=== PATIENT | female | born 1960 | race Caucasian/White ===

== ENCOUNTER 2018-11-06 08:37 | Inpatient (IN) ==
[2018-11-06] MEDS ORDERED: Sod Chloride 0.9% Inj 1,000 ML IV.SIG ONE (09:08)
[2018-11-06] MEDS ORDERED: Acetaminophen 325 MG Tablet PO ONE (09:08)
--- NOTE | 2018-11-06 09:17 | ED ---
HPI General Chief complaint: Respiratory Symptoms Stated complaint: sob/nauseous x thur Time Seen by Provider: 11/06/18 08:49 Source: patient Mode of arrival: ambulatory Limitations: no limitations History of Present Illness HPI Narrative: The patient is a 58-year-old female who presents to the emergency department for generalized weakness. The patient states that approximately a week and a half ago she developed symptoms including generalized weakness, nausea, vomiting, diarrhea, and cough. The patient states she has been in bed for the last week, is unable to get out of bed secondary to her generalized weakness. The patient last had nausea and vomiting 2 nights ago, she tried to eat mashed potatoes with gravy last night, however, complained of a poor appetite. She also complains of a dry nonproductive cough with mild shortness of breath. The patient does endorse subjective fevers at home but does not have a thermometer. The patient denies any chest pain, abdominal pain, dysuria, frequency, or urgency. The patient does have a roommate with similar symptoms. The patient does have a history of tobacco use, but states she has been too weak to smoke for the last week and a half. She does not have a primary physician. She denies taking any medications on a daily basis. MD Complaint: Reports generalized weakness Onset (ago): week(s) Duration: constant and progressively worsening Location: Reports generalized Migration: Reports none Severity: moderate Relieving factors: none Exacerbating factors: none Context: Reports recent illness Associated symptoms: Reports fever/chills, loss of appetite, nausea/vomiting and shortness of breath Related Data Home Medications Medication Instructions Recorded Confirmed No Known Home Medications 11/06/18 11/06/18 Allergies Allergy/AdvReac Type Severity Reaction Status Date / Time diclofenac Allergy Severe Anaphylaxis Verified 11/06/18 09:11 etodolac Allergy Severe Anaphylaxis Verified 11/06/18 09:11 flurbiprofen Allergy Severe Anaphylaxis Verified 11/06/18 09:11 ibuprofen Allergy Severe Anaphylaxis Verified 11/06/18 09:11 indomethacin Allergy Severe Anaphylaxis Verified 11/06/18 09:11 ketoprofen Allergy Severe Anaphylaxis Verified 11/06/18 09:11 ketorolac Allergy Severe Anaphylaxis Verified 11/06/18 09:11 naproxen Allergy Severe Anaphylaxis Verified 11/06/18 09:11 oxaprozin Allergy Severe Anaphylaxis Verified 12/26/18 09:11 Review of Systems ROS: all other systems reviewed are negative [facility] Medical History Medical History Patient denies medical problems (Acute) Surgical History Surgical History No history of previous surgery (Acute) Social History Social History Substance History: No History of Abuse Smoking Status: Current every day smoker Tobacco Type: Cigarettes How Often Do You Have a Drink Containing Alcohol: Never Recent Travel in [facility] within the Last 8 Weeks: No Recent Out of Country Travel within the Last 8 Weeks: No Exam Narrative Exam Narrative: GENERAL: Awake, alert, pleasant 58-year-old female who appears her stated age and is in no acute respiratory distress. SKIN: Focused skin assessment warm/dry. HEAD: Atraumatic. Normocephalic. EYES: Pupils equal and round. No scleral icterus. No injection or drainage. ENT: No nasal bleeding or discharge. Dry mucous membranes. Upper dentures in place. No lower teeth. NECK: Trachea midline. No JVD. CARDIOVASCULAR: Regular, tachycardic with a heart rate of 115. RESPIRATORY: No accessory muscle use. Clear to auscultation. Breath sounds equal bilaterally. GASTROINTESTINAL: Abdomen soft, non-tender, nondistended. No guarding or rigidity. Back: No CVA tenderness. MUSCULOSKELETAL: No obvious deformities. No clubbing. No cyanosis. No edema. NEUROLOGICAL: Awake and alert. No obvious cranial nerve deficits. Motor grossly within normal limits. Normal speech. PSYCHIATRIC: Appropriate mood and affect; insight and judgment normal. Course Initial Documented Vital Signs Temperature 97.8 F 11/06/18 09:00 Pulse Rate 115 H 11/06/18 09:00 Respiratory Rate 22 11/06/18 09:00 Blood Pressure 116/82 11/06/18 09:00 Pulse Oximetry 96 11/06/18 09:00 Last Documented Vital Signs Temperature 97.8 F 11/06/18 09:00 Pulse Rate 97 H 11/06/18 10:30 Respiratory Rate 22 11/06/18 10:30 Blood Pressure 132/85 11/06/18 10:30 Pulse Oximetry 96 11/06/18 10:30 Medical Decision Making MDM Narrative Medical decision making narrative: IV was established, labs are drawn and sent, and the patient was placed on cardiac telemetry monitoring and continuous pulse oximetry monitoring. EKG was ordered and interpreted. Chest x-ray was obtained. The patient was administered 1 L of IV fluids and Zofran 4 mg intravenously. Influenza screen and UA were sent to lab. The patient's white count was normal, hemoglobin was slightly elevated, most likely secondary to hemoconcentration. BUN was greater than 80, creatinine is greater than 2, patient has 40-1 ratio, most likely secondary to prerenal azotemia and dehydration. Chest x-ray reveals bilateral lower lobe infiltrates. UA reveals UTI. The patient was covered with Rocephin and Zithromax. The patient does have diarrhea with pneumonia, therefore, Legionella urinary antigen was sent to lab. The patient will be admitted for pneumonia, UTI, acute kidney injury, and dehydration. The patient does not have a primary physician, therefore, the on- call medical service was paged for admission. I discussed the patient with Dr. Sarmiento who agrees with admission. Influenza screen was also sent to lab. Medical Screen Exam Complete: Yes Emergency Medical Condition: Yes Differential Diagnosis Differential Diagnosis: Differential diagnosis includes hyponatremia, dehydration, acute kidney injury, UTI, pneumonia, viral syndrome, gastroenteritis, debility, deconditioning. Lab Data Lab results reviewed: Yes I reviewed the patient's lab results. Result diagrams: 11/06/18 09:35 11/06/18 09:35 Lab Results 11/06/18 11/06/18 11/06/18 Range/Units 09:35 09:35 09:45 CBC w Diff Slide review pending WBC 8.9 (4.0-11.0) th/mm3 RBC 5.39 H (4.00-5.30) mil/mm3 Hgb 15.9 H (11.6-15.3) gm/dL Hct 48.0 H (35.0-46.0) % MCV 89.1 (80.0-100.0) fL MCH 29.5 (27.0-34.0) pg MCHC 33.1 (32.0-36.0) % RDW 12.5 (11.6-17.2) % Plt Count 91 L (150-450) th/mm3 MPV 10.1 (7.0-11.0) fL Neut % (Auto) 90.6 H (16.0-70.0) % Lymph % (Auto) 3.1 L (9.0-44.0) % Wilkinson % (Auto) 6.1 (0.0-8.0) % Eos % (Auto) 0.0 (0.0-4.0) % Baso % (Auto) 0.2 (0.0-2.0) % Neut # (Auto) 8.1 H (1.8-7.7) th/mm3 Lymph # (Auto) 0.3 L (1.0-4.8) th/mm3 Wilkinson # (Auto) 0.5 (0.0-0.9) th/mm3 Eos # (Auto) 0.0 (0.0-0.4) th/mm3 Baso # (Auto) 0.0 (0.0-0.2) th/mm3 WBC Differential . Diff Scan Auto diff confirmed Differential Comment . Platelet Estimate Low L (Normal) Platelet Morphology Enlarged H (Normal) Sodium 125 L (136-145) meq/L Potassium 3.9 (3.5-5.1) meq/L Chloride 89 L (98-107) meq/L Carbon Dioxide 23.3 (21.0-32.0) meq/L Anion Gap 13 (5-15) meq/L BUN 81 H (7-18) mg/dL Creatinine 2.20 H (0.50-1.00) mg/dL Estimated GFR 23 L (>89) mL/min Random Glucose 275 H (74-106) mg/dL Calcium 7.5 L (8.5-10.1) mg/dL Magnesium 2.9 H (1.5-2.5) mg/dL Total Bilirubin 0.5 (0.2-1.0) mg/dL AST 151 H (15-37) U/L ALT 47 (10-53) U/L Alkaline Phosphatase 114 (45-117) U/L Total Creatine Kinase 257 H (26-192) U/L CK-MB (CK-2) 1.7 (0.5-3.6) ng/mL CK-MB (CK-2) % 0.7 (0.0-4.0) % Troponin I 0.03 (0.02-0.05) ng/mL Total Protein 7.0 (6.4-8.2) g/dL Albumin 2.7 L (3.4-5.0) g/dL TSH 0.726 (0.358-3.740) uIU/mL Urine Color Yellow (Yellw/Straw) Urine Clarity Cloudy H (Clear) Urine pH 5.5 (5.0-8.5) Ur Specific Gleason 1.025 (1.002-1.035) Urine Protein 100 H (Neg-Trace) mg/dL Urine Glucose (UA) 100 H (Negative) mg/dL Urine Ketones Negative (Negative) mg/dL Urine Occult Blood Moderate H (Negative) Urine Nitrate Negative (Negative) Urine Bilirubin Negative (Negative) Urine Urobilinogen 1.0 (Less than 2) mg/dL Ur Leukocyte Esterase Moderate H (Negative) Urine RBC 0-3 (0-3) /hpf Urine WBC 21-50 H (0-5) /hpf Urine WBC Clumps Occasional H (None) Urine Bacteria Many H (None) /hpf Micro UA Comment Culture indicated Ur Microscopic Review Microscopic reviewed Urine Culture Comments Culture indicated Imaging Data Attestation: I personally reviewed and interpreted this imaging study as follows : My impression: Bilateral interstitial infiltrates Radiologist's impression: Chest X-Ray 11/06/18 09:08 CONCLUSION: There is some scattered interstitial infiltrates bilaterally. This could be on a chronic basis versus an inflammatory process such as interstitial pneumonia. ECG Data EKG Prior to Arrival: No Attestation: I personally reviewed and interpreted this ECG as follows: Interpretation: EKG reveals sinus tachycardia with a rate of 109. Short RI interval of 119 ms. LVH. Inverted T waves noted in lead V4, V5, V6, I, II, and aVF. Discharge Plan Discharge Disposition Patient Disposition: ED Admit(ED Internal Use Only) Discharge Condition Condition: Stable Discharge Order Discharge Orders: ED Use Only Admit Order (Routine); Ordered 11/06/18 Ordered By: Francisco Javier Mattson Discharge Details Diagnosis: Bilateral pneumonia, Acute UTI, Acute kidney injury, Acute dehydration Physicians Team ED Provider: Francisco Javier Mattson Primary Care Provider: Primary Care Physici,Agueda Rxs /Orders / Referrals /Forms Prescriptions: No Action No Known Home Medications RF: 0 Status ED Status: Pending Admission
--- NOTE | 2018-11-06 09:51 | XR ---
EXAM DATE: 11/06/2018 9:45 AM EST AGE/SEX: 58 years / Female INDICATIONS: Short of breath and vomiting for a week and a half. CLINICAL DATA: This is the patient's initial encounter. Patient reports that signs and symptoms have been present for 2 weeks and indicates a pain score of 0/10. MEDICAL/SURGICAL HISTORY: None. None. COMPARISON: No prior exams available for comparison. FINDINGS: There is some hyperaeration of both lung darden. There is some scattered interstitial infiltrates krystal aterally. There are no prior studies for comparison. No significant pleural effusions. The heart size is within normal limits. The bony structures are grossly intact. CONCLUSION: There is some scattered interstitial infiltrates bilaterally. This could be on a chronic basis versus an inflammatory process such as interstitial pneumonia. Electronically signed by: Evan Gu MD Board Certified Radiologist 11/06/2018 9:49 AM EST
[2018-11-06] MEDS ORDERED: Azithromycin Inj 500 MG in Sodium Chlor 0.9% Inj 250 ML IV.SIG ONE (09:56)
[2018-11-06 10:07] LABS: Bilirubin,Urine Negative (Negative); Clarity,Urine Cloudy (Clear); Color,Urine Yellow (Yellw/Straw); Glucose,Urine (UA) 100 mg/dL (Negative); Leukocyte Esterase,Urine Moderate (Negative); Nitrite,Urine Negative (Negative); PH,Urine 5.5 (5.0-8.5); Specific Gravity,Urine 1.025 (1.002-1.035)
[2018-11-06 10:14] LABS: Baso % (Auto) 0.2 % (0.0-2.0); Hemoglobin 15.9 gm/dL (11.6-15.3); Lymph # (Auto) 0.3 th/mm3 (1.0-4.8); Lymph % (Auto) 3.1 % (9.0-44.0); Mean Corpuscular HGB Conc 33.1 % (32.0-36.0); Mean Corpuscular Hemoglobin 29.5 pg (27.0-34.0); Mean Corpuscular Volume 89.1 fL (80.0-100.0); Mean Platelet Volume 10.1 fL (7.0-11.0); Mono # (Auto) 0.5 th/mm3 (0.0-0.9); Mono % (Auto) 6.1 % (0.0-8.0); Neut # (Auto) 8.1 th/mm3 (1.8-7.7); Neut % (Auto) 90.6 % (16.0-70.0); Red Blood Count 5.39 mil/mm3 (4.00-5.30); Red Cell Distribution Width 12.5 % (11.6-17.2); White Blood Count 8.9 th/mm3 (4.0-11.0)
[2018-11-06 10:19] LABS: RBC,Urine 0-3 /hpf (0-3); WBC,Urine 21-50 /hpf (0-5)
[2018-11-06 10:20] LABS: Platelet Count 91 th/mm3 (150-450)
[2018-11-06 10:20] LABS: Bacteria,Urine Many /hpf
[2018-11-06 10:30] LABS: Chloride 89 meq/L (98-107); Potassium 3.9 meq/L (3.5-5.1); Sodium 125 meq/L (136-145)
[2018-11-06 10:33] LABS: Calcium 7.5 mg/dL (8.5-10.1)
[2018-11-06 10:34] LABS: Albumin 2.7 g/dL (3.4-5.0); Anion Gap 13 meq/L (5-15); Blood Urea Nitrogen 81 mg/dL (7-18); Carbon Dioxide 23.3 meq/L (21.0-32.0); Glucose,Random 275 mg/dL (74-106); Magnesium 2.9 mg/dL (1.5-2.5)
[2018-11-06 10:37] LABS: Alanine Aminotransferase 47 U/L (10-53); Aspartate Aminotransferase 151 U/L (15-37); Glomerular Filtration Rate 23 mL/min (>89)
[2018-11-06 10:40] LABS: Alkaline Phosphatase 114 U/L (45-117); Creatine Kinase 257 U/L (26-192)
[2018-11-06 10:42] LABS: Troponin I 0.03 ng/mL (0.02-0.05)
[2018-11-06 10:48] LABS: Thyroid Stimulating Hormone 0.726 uIU/mL (0.358-3.740)
[2018-11-06 10:52] LABS: CKMB Percent 0.7 % (0.0-4.0); Creatine Kinase MB 1.7 ng/mL (0.5-3.6)
[2018-11-06] MEDS ORDERED: Bisacodyl 10 MG Supp RECTAL PRN (11:46)
[2018-11-06] MEDS ORDERED: Acetaminophen 325 MG Tablet PO PRN (11:46)
--- NOTE | 2018-11-06 13:10 | P.HP ---
History of Present Illness Primary Care Physician: No Primary Care Physician Chief Complaint: Generalized weakness History of Present Illness: This is a 58-year-old female patient with no known medical history who presented to the ED with complaints of generalized weakness, poor appetite, nausea, vomiting and cough x 1 week. Patient states she has been unable to eat for the past week due to feeling weak and nauseous, states the has also had shortness of breath especially with exertion and activity with complaints of a nonproductive cough. She states that last evening she was with subjective fevers and chills, although she did not take her temperature. Denies any chest pain, headache, or dysuria. Denies any recent antibiotic use or daily medications use. Patient states she has been in relatively good health and has not seen a doctor nor had lab work done her entire life. She does smoke 1.5 ppd cigarettes. Patient presented with CXR showing bilateral infiltrates, Na 125, Creatinine 2.2/GFR 23 and platelets 91. - Diagnosis (1) Bilateral pneumonia (2) Acute UTI (3) Acute kidney injury (4) Acute dehydration Inpatient Certification: I certify that the inpatient services were ordered in accordance with Medicare regulations governing the order. This includes certification that hospital inpatient services are reasonable and necessary and in the case of services not specified as inpatient-only under 42 CFR 419.22(n), that they are appropriately provided as inpatient services in accordance to with the 2-midnight benchmark under 43 CFR 412.3(e) Estimated Total Length of Stay (Days): 3 Plans for Post Hospital Care: Not yet determined Review of Systems All other systems reviewed negative except as stated in HPI [facility], [facility] - History History Provided By: Patient - Medical History Medical History: Medical History (Last Reviewed 11/06/18 @ 13:25 by Sylvie Saenz) Patient denies medical problems - Surgical History Surgical History: Surgical History (Last Reviewed 11/06/18 @ 13:25 by Sylvie Saenz) No history of previous surgery - Family History Family History: Family History (Last Updated 11/06/18 @ 13:26 by Sylvie Saenz) Other Family history in first degree relatives is unremarkable Family history non-contributory - Social History I have reviewed the patient's Social History: Yes - Tobacco History Tobacco Use In Past 30 Days: Yes Smoking Status: Current every day smoker Tobacco Type: Cigarettes - Alcohol History How Often Do You Have a Drink Containing Alcohol: Never - Substance Use History Substance History: No History of Abuse - Travel History Recent Travel in the [place] Within the Last 8 Weeks: No Recent Travel Out of the Country Within the Last 8 Weeks: No - Immunization History Tetanus Immunization: >5 Years Medications and Allergies Active Medications: Active Medications Acetaminophen (Tylenol) 650 mg PO Q4H PRN PRN Reason: Temp > 100.4 Azithromycin (Zithromax) 500 mg PO DAILY MOISÉS Bisacodyl (Dulcolax Supp) 10 mg RECTAL DAILY PRN PRN Reason: SEVERE CONSITIPATION Ceftriaxone Sodium 1,000 mg/ (Sodium Chloride) 100 mls @ 200 mls/hr IV.SIG Q24H MOISÉS Sodium Chloride (Ns Inj) 1,000 mls @ 100 mls/hr IV.CONT .Q10H MOISÉS Lactulose (Lactulose Liq) 30 ml PO DAILY PRN PRN Reason: SEVERE CONSITIPATION Ondansetron HCl (Zofran Inj) 4 mg IV.PUSH Q6H PRN PRN Reason: NAUSEA OR VOMITING Senna/Docusate Sodium (Elizabeth-Colace) 1 tab PO BID MOISÉS Sennosides (Senokot) 17.2 mg PO Q12H PRN PRN Reason: Moderate Constipation Sodium Chloride (Ns Flush) 2 ml IV.FLUSH PRN PRN PRN Reason: FLUSH AFTER USING IV ACCESS Sodium Chloride (Ns Flush) 2 ml IV.FLUSH BID MOISÉS Sodium Chloride (Ns Flush) 2 ml IV.FLUSH PRN PRN PRN Reason: FLUSH AFTER USING IV ACCESS Allergies Allergy/AdvReac Type Severity Reaction Status Date / Time diclofenac Allergy Severe Anaphylaxis Verified 11/06/18 09:11 etodolac Allergy Severe Anaphylaxis Verified 11/06/18 09:11 flurbiprofen Allergy Severe Anaphylaxis Verified 11/06/18 09:11 ibuprofen Allergy Severe Anaphylaxis Verified 11/06/18 09:11 indomethacin Allergy Severe Anaphylaxis Verified 11/06/18 09:11 ketoprofen Allergy Severe Anaphylaxis Verified 11/06/18 09:11 ketorolac Allergy Severe Anaphylaxis Verified 11/06/18 09:11 naproxen Allergy Severe Anaphylaxis Verified 11/06/18 09:11 oxaprozin Allergy Severe Anaphylaxis Verified 11/06/18 09:11 Home Medications Medication Instructions Recorded Confirmed Type No Known Home Medications 11/06/18 11/06/18 History Exam Vital signs: Vital Signs 11/06/18 09:00 11/06/18 09:10 11/06/18 10:30 Temperature 97.8 F Pulse Rate 115 H 115 H 97 H Respiratory Rate 22 22 Blood Pressure 116/82 132/85 Pulse Oximetry 96 96 96 Intake & Output 11/05/18 11/06/18 11/06/18 18:59 06:59 18:59 Intake Total 1350 / 1350 Balance 1350 / 1350 Weight 47.6 kg Intake: IV 1350 / 1350 Azithromycin Inj 500 MG In NS 250 / 250 Inj 250 ML @ 250 mls/hr IV.SIG ONCE ONE Rx#:[id number] NS Inj 1,000 ML @ Wide Open IV. 1000 / 1000 SIG BOLUS ONE Rx#:[id number] Rocephin Inj 1,000 MG In NS Inj 100 / 100 100 ML @ 200 mls/hr IV.SIG ONCE ONE Rx#:[id number] - Constitutional no acute distress - Routine HEENT Exam Head: Present: normocephalic Eye: Present: EOMI ENT: Present: mucous membranes moist - Routine Neck Exam Present: supple - Routine Respiratory Exam Present: rhonchi Comments: Rhonchi noted throughout. - Routine Cardiovascular Exam Present: RRR - Routine Abdominal Exam Present: soft - Routine Skin Exam Present: intact - Routine Neurological Exam Present: alert, oriented X3 Results - Labs CBC & Chem 7: 11/07/18 04:25 11/07/18 04:25 Labs: Laboratory Results - last 24 hr 11/06/18 11/06/18 11/06/18 09:35 09:35 09:35 CBC w Diff Slide review pending WBC 8.9 RBC 5.39 H Hgb 15.9 H Hct 48.0 H MCV 89.1 MCH 29.5 MCHC 33.1 RDW 12.5 Plt Count 91 L MPV 10.1 Neut % (Auto) 90.6 H Lymph % (Auto) 3.1 L Coles % (Auto) 6.1 Eos % (Auto) 0.0 Baso % (Auto) 0.2 Neut # (Auto) 8.1 H Lymph # (Auto) 0.3 L Coles # (Auto) 0.5 Eos # (Auto) 0.0 Baso # (Auto) 0.0 WBC Differential . Diff Scan Auto diff confirmed Differential Comment . Platelet Estimate Low L Platelet Morphology Enlarged H Sodium 125 L Potassium 3.9 Chloride 89 L Carbon Dioxide 23.3 Anion Gap 13 BUN 81 H Creatinine 2.20 H Estimated GFR 23 L Random Glucose 275 H Calcium 7.5 L Magnesium 2.9 H Total Bilirubin 0.5 AST 151 H ALT 47 Alkaline Phosphatase 114 Total Creatine Kinase 257 H CK-MB (CK-2) 1.7 CK-MB (CK-2) % 0.7 Troponin I 0.03 B-Natriuretic Peptide 24 Total Protein 7.0 Albumin 2.7 L TSH 0.726 Urine Color Urine Clarity Urine pH Ur Specific [place] Urine Protein Urine Glucose (UA) Urine Ketones Urine Occult Blood Urine Nitrate Urine Bilirubin Urine Urobilinogen Ur Leukocyte Esterase Urine RBC Urine WBC Urine WBC Clumps Urine Bacteria Micro UA Comment Ur Microscopic Review Urine Culture Comments 11/06/18 09:45 CBC w Diff WBC RBC Hgb Hct MCV MCH MCHC RDW Plt Count MPV Neut % (Auto) Lymph % (Auto) Coles % (Auto) Eos % (Auto) Baso % (Auto) Neut # (Auto) Lymph # (Auto) Coles # (Auto) Eos # (Auto) Baso # (Auto) WBC Differential Diff Scan Differential Comment Platelet Estimate Platelet Morphology Sodium Potassium Chloride Carbon Dioxide Anion Gap BUN Creatinine Estimated GFR Random Glucose Calcium Magnesium Total Bilirubin AST ALT Alkaline Phosphatase Total Creatine Kinase CK-MB (CK-2) CK-MB (CK-2) % Troponin I B-Natriuretic Peptide Total Protein Albumin TSH Urine Color Yellow Urine Clarity Cloudy H Urine pH 5.5 Ur Specific [place] 1.025 Urine Protein 100 H Urine Glucose (UA) 100 H Urine Ketones Negative Urine Occult Blood Moderate H Urine Nitrate Negative Urine Bilirubin Negative Urine Urobilinogen 1.0 Ur Leukocyte Esterase Moderate H Urine RBC 0-3 Urine WBC 21-50 H Urine WBC Clumps Occasional H Urine Bacteria Many H Micro UA Comment Culture indicated Ur Microscopic Review Microscopic reviewed Urine Culture Comments Culture indicated - Imaging Impressions Chest X-Ray 11/06/18 09:08 CONCLUSION: There is some scattered interstitial infiltrates bilaterally. This could be on a chronic basis versus an inflammatory process such as interstitial pneumonia. Caprini VTE Risk Assessment Caprini VTE Risk Assessment: No/Low Risk (score <= 1) Caprini Risk Assessment Model: Point Value = 1 Point Value = 2 Point Value = 3 Point Value = 5 Age 41-60 Minor surgery BMI > 25 kg/m2 Swollen legs Varicose veins or History of unexplained or recurrent spontaneous Oral contraceptives or hormone replacement Sepsis (< 1 month) Serious lung disease, including pneumonia (< 1 month) Abnormal pulmonary function Acute myocardial infarction Congestive heart failure (< 1 month) History of inflammatory bowel disease Medical patient at bed rest Age 61-74 Arthroscopic surgery Major open surgery (> 45 min) Laparoscopic surgery (> 45 min) Malignancy Confined to bed (> 72 hours) Immobilizing plaster cast Central venous access Age >= 75 History of VTE Family history of VTE Factor V Leiden Prothrombin [id number] Lupus anticoagulant Anticardiolipin antibodies Elevated serum homocysteine Heparin-induced thrombocytopenia Other congenital or acquired thrombophilia Stroke (< 1 month) Elective arthroplasty Hip, pelvis, or leg fracture Acute spinal cord injury (< 1 month) Prophylaxis Regimen: Total Risk Factor Score Risk Level Prophylaxis Regimen 0-1 Low Early ambulation 2 Moderate Order ONE of the following: *Sequential Compression Device (SCD) *Heparin 5000 units SQ BID 3-4 Higher Order ONE of the following medications: *Heparin 5000 units SQ TID *Enoxaparin/Lovenox 40 mg SQ daily (WT < 150 kg, CrCl > 30 mL/min) *Enoxaparin/Lovenox 30 mg SQ daily (WT < 150 kg, CrCl > 10-29 mL/min) *Enoxaparin/Lovenox 30 mg SQ BID (WT < 150 kg, CrCl > 30 mL/min) AND/OR *Sequential Compression Device (SCD) 5 or more Highest Order ONE of the following medications: *Heparin 5000 units SQ TID (Preferred with Epidurals) *Enoxaparin/Lovenox 40 mg SQ daily (WT < 150 kg, CrCl > 30 mL/min) *Enoxaparin/Lovenox 30 mg SQ daily (WT < 150 kg, CrCl > 10-29 mL/min) *Enoxaparin/Lovenox 30 mg SQ BID (WT < 150 kg, CrCl > 30 mL/min) AND *Sequential Compression Device (SCD) Assessment and Plan - Assessment (1) Bilateral pneumonia Code(s): J18.9 - Pneumonia, unspecified organism Status: Acute (2) Acute UTI Code(s): N39.0 - Urinary tract infection, site not specified Status: Acute (3) Acute kidney injury Code(s): N17.9 - Acute kidney failure, unspecified Status: Acute (4) Acute dehydration Code(s): E86.0 - Dehydration Status: Acute - Plan This is a 58-year-old female patient with: Bilateral community-acquired pneumonia -CXR showing bilateral lower infiltrates. -CBC and BMP reviewed, essentially unremarkable. -Started on Ceftriaxone and Azithromycin in ED. Will continue. -Does also admit to some diarrhea. Legionella is pending. Follow. -Influenza was negative. -Supplemental O2 as needed to keep O2 sats >92%. Comfortable on RA at this time. Acute kidney injury suspect secondary to dehydration Azotemia Abnormal UA, likely UTI -Creatinine 2.2/GFR 23. Presence of leukocyte esterase and WBC. Denies any dysuria. -Denies any history of kidney disease. Does admit to poor PO intake over the last week, likely dehydration and azotemia and infection. -Monitor BMP in am. Continue IVF. -Continue Ceftriaxone for possible UTI coverage as well. Hyponatremia -NA 125. Likely secondary to dehydration. Will continue IVF. -Will check BMP in am. Thrombocytopenia -Platelet count 91. Denies any history of thrombocytopenia. Denies alcohol use. -No signs of bleeding. -Will recheck in am. Follow. Elevated random glucose: Random glucose 275. Check hemoglobin a1c. Tobacco use/Nicotine dependance -Approximately 7 minutes were spent counseling the patient in cessation techniques. She understands continuing to smoke could lead to stroke and . The benefits of stopping were also presented to her. 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 DVT Prophylaxis: SCDs. Ambulation. (1) Bilateral pneumonia Qualifiers: Pneumonia type: due to unspecified organism Lung location: unspecified part of lung Qualified Code(s): J18.9 - Pneumonia, unspecified organism
[2018-11-06] MEDS: Sod Chloride 0.9% Inj 1,000 ML IV.CONT SCH (15:01)
--- NOTE | 2018-11-06 18:06 | ECG ---
Date Performed: 11/06/2018 Time Performed: 09:17:27 PTAGE: 58 years EKG: SINUS TACHYCARDIA WITH SHORT IN INTERVAL RIGHT ATRIAL ENLARGEMENT LEFT ATRIAL ENLARGEMENT L EFT VENTRICULAR HYPERTROPHY AND ST-T CHANGE ABNORMAL ECG PREVIOUS TRACING : 02/18/2001 08.47 Compared to previous tracing, rate faster, ST-T changes pr esent DOCTOR: Miquel Evans Interpretating Date/Time 11/06/2018 18:04:51
[2018-11-06 18:22] LABS: Chol/HDL Ratio 3.91 Ratio; HDL Cholesterol 29.4 mg/dL (40.0-60.0)
[2018-11-06 21:34] LABS: Hemoglobin A1c 5.7 % (4.3-6.0)
[2018-11-06] MEDS: Senna/Docusate Sodium 8.6/50 MG Tablet PO SCH (23:43)
[2018-11-07] MEDS: Sod Chloride 0.9% Inj 1,000 ML IV.CONT SCH ×2 (01:13→14:31)
[2018-11-07 04:55] LABS: Baso % (Auto) 0.2 % (0.0-2.0); Eos % (Auto) 0.1 % (0.0-4.0); Hematocrit 39.1 % (35.0-46.0); Hemoglobin 13.2 gm/dL (11.6-15.3); Lymph # (Auto) 0.4 th/mm3 (1.0-4.8); Mean Corpuscular HGB Conc 33.7 % (32.0-36.0); Mean Corpuscular Hemoglobin 30.2 pg (27.0-34.0); Mean Corpuscular Volume 89.5 fL (80.0-100.0); Mean Platelet Volume 9.1 fL (7.0-11.0); Mono # (Auto) 0.4 th/mm3 (0.0-0.9); Mono % (Auto) 5.7 % (0.0-8.0); Neut # (Auto) 5.6 th/mm3 (1.8-7.7); Platelet Count 86 th/mm3 (150-450); Red Blood Count 4.37 mil/mm3 (4.00-5.30); Red Cell Distribution Width 12.5 % (11.6-17.2); White Blood Count 6.4 th/mm3 (4.0-11.0)
[2018-11-07 05:21] LABS: Albumin 2.2 g/dL (3.4-5.0); Calcium 7.1 mg/dL (8.5-10.1); Carbon Dioxide 25.2 meq/L (21.0-32.0); Potassium 3.3 meq/L (3.5-5.1); Total Protein 5.4 g/dL (6.4-8.2)
[2018-11-07] MEDS: Azithromycin 250 MG Tablet PO SCH (08:33)
[2018-11-07] MEDS: Senna/Docusate Sodium 8.6/50 MG Tablet PO SCH ×2 (08:34→20:57)
--- NOTE | 2018-11-07 12:21 | P.PNIM ---
Subjective Interval history: Pneumonia thrombocytopenia. Patient seen and examined, lying in bed comfortably no apparent distress. Improved overnight. States she feels weak with ambulating. Continue with physical therapy. Vital signs stable. Afebrile. Denies any chest pain. Physical Exam Vital signs: Vital Signs 11/06/18 12:50 11/06/18 13:00 11/06/18 14:00 Temperature Pulse Rate 98 H 96 H 101 H Respiratory Rate 24 18 18 Blood Pressure 104/71 106/67 Pulse Oximetry 92 L 98 98 11/06/18 15:00 11/06/18 15:05 11/06/18 15:12 Temperature 99.3 F Pulse Rate 105 H 92 H 100 H Respiratory Rate 20 24 37 H Blood Pressure 85/57 L 85/56 L 107/78 Pulse Oximetry 11/06/18 16:10 11/06/18 20:00 11/06/18 23:38 Temperature 98.9 F Pulse Rate 103 H 90 96 H Respiratory Rate 24 31 H Blood Pressure 121/76 118/67 Pulse Oximetry 93 L 11/07/18 00:00 11/07/18 04:00 11/07/18 08:00 Temperature 98.7 F 98.8 F 98.8 F Pulse Rate 94 H 94 H 96 H Respiratory Rate 28 H 26 H 14 Blood Pressure 118/67 91/65 L 109/87 Pulse Oximetry 94 L 94 L 97 11/07/18 08:25 11/07/18 12:01 Temperature Pulse Rate 104 H 96 H Respiratory Rate 33 H 29 H Blood Pressure 109/87 109/74 Pulse Oximetry Intake & Output 11/06/18 11/07/18 11/07/18 18:59 06:59 18:59 Intake Total 1350 / 1350 1320 / 1320 Balance 1350 / 1350 1320 / 1320 Weight 47.4 kg 49.9 kg Intake: IV 1350 / 1350 1000 / 1000 NS Inj 1,000 ML @ 100 mls/hr IV 1000 / 1000 .CONT .Q10H MOISÉS Rx#:[id number] Azithromycin Inj 500 MG In NS 250 / 250 Inj 250 ML @ 250 mls/hr IV.SIG ONCE ONE Rx#:[id number] NS Inj 1,000 ML @ Wide Open IV. 1000 / 1000 SIG BOLUS ONE Rx#:[id number] Rocephin Inj 1,000 MG In NS Inj 100 / 100 100 ML @ 200 mls/hr IV.SIG ONCE ONE Rx#:[id number] Oral 320 / 320 Other: # Voids 1 2 Date of Last Bowel Movement 11/06/18 11/06/18 # Bowel Movements 1 Weight On Admission 47.4 kg Narrative: GENERAL: Well-developed, well-nourished patient in [facility]. SKIN: Warm and dry. No rash. HEAD: Normocephalic. Atraumatic. EYES: Pupils equal and round. No scleral icterus. No injection or drainage. ENT: No nasal bleeding or discharge. Mucous membranes pink and moist. NECK: Supple. Trachea midline. CARDIOVASCULAR: Regular rate and rhythm. S1, S2 noted. No murmur appreciated. RESPIRATORY: No accessory muscle use. Clear to auscultation. Breath sounds equal bilaterally. GASTROINTESTINAL: Abdomen soft, non-tender, nondistended. Normoactive bowel sounds x4. MUSCULOSKELETAL: No obvious deformities. Extremities without clubbing, cyanosis , or edema. NEUROLOGICAL: Awake and alert. No obvious cranial nerve deficits. Motor grossly within normal limits. 5/5 muscle strength in bilateral upper and lower extremities. Normal speech. PSYCHIATRIC: Appropriate mood and affect; insight and judgment normal. - Urinary Catheter Management Straight Cath placed during this visit: yes Reason for continuing: Not indwelling catheter Insertion date: 11/06/18 Insertion time: 09:45 Results - Labs CBC & Chem 7: 11/07/18 04:25 11/07/18 04:25 Laboratory Results - last 24 hr 11/06/18 11/06/18 11/06/18 09:35 09:35 09:35 CBC w Diff WBC RBC Hgb Hct MCV MCH MCHC RDW Plt Count MPV Neut % (Auto) Lymph % (Auto) [place] % (Auto) Eos % (Auto) Baso % (Auto) Neut # (Auto) Lymph # (Auto) [place] # (Auto) Eos # (Auto) Baso # (Auto) WBC Differential Diff Scan Differential Comment Platelet Estimate Platelet Morphology Sodium Potassium Chloride Carbon Dioxide Anion Gap BUN Creatinine Estimated GFR Random Glucose Hemoglobin A1c 5.7 Calcium Calcium Adj for Albumin Total Bilirubin AST ALT Alkaline Phosphatase B-Natriuretic Peptide 24 Total Protein Albumin Triglycerides 223 H Cholesterol 115 L LDL Cholesterol, Calc 41 HDL Cholesterol 29.4 L Cholesterol/HDL Ratio 3.91 Urine Color Urine Clarity Urine pH Ur Specific [place] Urine Protein Urine Glucose (UA) Urine Ketones Urine Occult Blood Urine Nitrate Urine Bilirubin Urine Urobilinogen Ur Leukocyte Esterase Urine RBC Urine WBC Urine WBC Clumps Urine Bacteria Micro UA Comment Ur Microscopic Review Urine Culture Comments 11/06/18 11/07/18 11/07/18 09:45 04:25 04:25 CBC w Diff Slide review pending WBC 6.4 RBC 4.37 Hgb 13.2 D Hct 39.1 MCV 89.5 MCH 30.2 MCHC 33.7 RDW 12.5 Plt Count 86 L MPV 9.1 Neut % (Auto) 88.0 H Lymph % (Auto) 6.0 L [place] % (Auto) 5.7 Eos % (Auto) 0.1 Baso % (Auto) 0.2 Neut # (Auto) 5.6 Lymph # (Auto) 0.4 L [place] # (Auto) 0.4 Eos # (Auto) 0.0 Baso # (Auto) 0.0 WBC Differential . Diff Scan Auto diff confirmed Differential Comment . Platelet Estimate Low L Platelet Morphology Enlarged H Sodium 135 L D Potassium 3.3 L Chloride 101 D Carbon Dioxide 25.2 Anion Gap 9 BUN 44 H Creatinine 1.00 Estimated GFR 57 L Random Glucose 92 D Hemoglobin A1c Calcium 7.1 L* Calcium Adj for Albumin 8.5 Total Bilirubin 0.4 AST 137 H ALT 45 Alkaline Phosphatase 109 B-Natriuretic Peptide Total Protein 5.4 L D Albumin 2.2 L Triglycerides Cholesterol LDL Cholesterol, Calc HDL Cholesterol Cholesterol/HDL Ratio Urine Color Yellow Urine Clarity Cloudy H Urine pH 5.5 Ur Specific [place] 1.025 Urine Protein 100 H Urine Glucose (UA) 100 H Urine Ketones Negative Urine Occult Blood Moderate H Urine Nitrate Negative Urine Bilirubin Negative Urine Urobilinogen 1.0 Ur Leukocyte Esterase Moderate H Urine RBC 0-3 Urine WBC 21-50 H Urine WBC Clumps Occasional H Urine Bacteria Many H Micro UA Comment Culture indicated Ur Microscopic Review Microscopic reviewed Urine Culture Comments Culture indicated Microbiology 11/06/18 09:45 Catheterized Urine Urine Culture - Preliminary gram negative rods 11/06/18 09:40 Nasal Wash Influenza Types A,B Antigen - Final Negative for FLU A and B antigen Infection due to influenza A or B cannot be ruled out since the antigen present in the sample may be below the detection limit of the test. Assessment and Plan - Assessment (1) Bilateral pneumonia Code(s): J18.9 - Pneumonia, unspecified organism Status: Acute (2) Acute UTI Code(s): N39.0 - Urinary tract infection, site not specified Status: Acute (3) Acute kidney injury Code(s): N17.9 - Acute kidney failure, unspecified Status: Acute (4) Acute dehydration Code(s): E86.0 - Dehydration Status: Acute - Plan This is a 58-year-old female patient with: Bilateral community-acquired pneumonia -CXR showing bilateral lower infiltrates. -CBC and BMP reviewed, essentially unremarkable. -Started on Ceftriaxone and Azithromycin in ED. Will continue. -Does also admit to some diarrhea. Legionella is pending. Follow. -Influenza was negative. -Supplemental O2 as needed to keep O2 sats >92%. Comfortable on RA at this time. Acute kidney injury suspect secondary to dehydration/azotemia UTI, gram - rods -Creatinine 2.2/GFR 23. creatinine 1.0 today. Presence of leukocyte esterase and WBC. Denies any dysuria. -Denies any history of kidney disease. Does admit to poor PO intake over the last week, likely dehydration and azotemia and infection. -Monitor BMP in am. Continue IVF. -Continue Ceftriaxone for possible UTI coverage as well. Follow cultures. Hyponatremia -NA 125. Improved, 135 today. Likely secondary to dehydration. Will continue IVF. Thrombocytopenia -Platelet count 91, 86 today. Denies any history of thrombocytopenia. Denies alcohol use. -No signs of bleeding. -Will recheck in am. Follow. Will need follow up. Elevated random glucose: Random glucose 275. Hemoglobin a1c 5.7. Tobacco use/Nicotine dependance -Encouraged cessation. DVT Prophylaxis: SCDs. Ambulation. (1) Bilateral pneumonia Qualifiers: Pneumonia type: due to unspecified organism Lung location: unspecified part of lung Qualified Code(s): J18.9 - Pneumonia, unspecified organism
[2018-11-07] MEDS: guaiFENesin/Dextromethorphan 200 MG/20 MG 10 ML UDC PO PRN ×2 (16:40→21:46)
[2018-11-08 07:24] LABS: Potassium 3.2 meq/L (3.5-5.1)
[2018-11-08 07:31] LABS: Baso % (Auto) 0.4 % (0.0-2.0); Eos % (Auto) 0.7 % (0.0-4.0); Hematocrit 36.7 % (35.0-46.0); Hemoglobin 12.4 gm/dL (11.6-15.3); Lymph # (Auto) 0.5 th/mm3 (1.0-4.8); Lymph % (Auto) 7.4 % (9.0-44.0); Mean Corpuscular HGB Conc 33.7 % (32.0-36.0); Mean Corpuscular Hemoglobin 30.6 pg (27.0-34.0); Mean Corpuscular Volume 90.9 fL (80.0-100.0); Mean Platelet Volume 8.7 fL (7.0-11.0); Mono # (Auto) 0.6 th/mm3 (0.0-0.9); Mono % (Auto) 10.3 % (0.0-8.0); Neut # (Auto) 5.2 th/mm3 (1.8-7.7); Neut % (Auto) 81.2 % (16.0-70.0); Platelet Count 136 th/mm3 (150-450); Red Blood Count 4.04 mil/mm3 (4.00-5.30); Red Cell Distribution Width 12.8 % (11.6-17.2); White Blood Count 6.3 th/mm3 (4.0-11.0)
[2018-11-08 07:45] LABS: Calcium 7.2 mg/dL (8.5-10.1); Carbon Dioxide 25.8 meq/L (21.0-32.0)
[2018-11-08 07:58] LABS: Albumin 2.1 g/dL (3.4-5.0); Calcium-Albumin Corrected 8.7 mg/dL (8.5-10.1)
[2018-11-08] MEDS: Senna/Docusate Sodium 8.6/50 MG Tablet PO SCH ×2 (10:40→23:05)
[2018-11-08] MEDS: Sod Chloride 0.9% Inj 1,000 ML IV.CONT SCH (10:40)
[2018-11-08] MEDS: Azithromycin 250 MG Tablet PO SCH (10:41)
[2018-11-08] MEDS: guaiFENesin/Dextromethorphan 200 MG/20 MG 10 ML UDC PO PRN ×2 (10:42→15:38)
--- NOTE | 2018-11-08 14:01 | P.PNIM ---
Subjective Interval history: Patient seen patient is seen lying quietly in bed. She reports intermittent cough that is productive. No fever or chills. No chest pain or shortness of breath. Tolerating meals well. Physical Exam Vital signs: Last Vital Signs Temp 97.2 F L 11/08/18 12:00 Pulse 97 H 11/08/18 12:00 Resp 20 11/08/18 12:00 BP 120/70 11/08/18 12:00 Pulse Ox 96 11/08/18 12:00 Intake & Output 11/06/18 11/07/18 11/08/18 11/09/18 06:59 06:59 06:59 06:59 Intake Total 2670 / 2670 1100 / 1100 480 / 480 Output Total 2200 / 2200 500 / 500 Balance 2670 / 2670 -1100 / -1100 -20 / -20 Weight 47.4 kg 49.5 kg Narrative: GENERAL: Well-developed, well-nourished patient in [facility]. SKIN: Warm and dry. No rash. HEAD: Normocephalic. Atraumatic. CARDIOVASCULAR: Regular rate and rhythm. RESPIRATORY: No accessory muscle use. Clear to auscultation. Breath sounds equal bilaterally. GASTROINTESTINAL: Abdomen soft, non-tender, nondistended. Normoactive bowel sounds x4. MUSCULOSKELETAL: No obvious deformities. Extremities without clubbing, cyanosis , or edema. NEUROLOGICAL: Awake and alert. No obvious cranial nerve deficits. Motor grossly within normal limits. Normal speech. PSYCHIATRIC: Appropriate mood and affect; insight and judgment normal. Urinary Catheter Management Straight: Cath placed during this visit: yes Urethral indwelling: No Insertion date: 11/06/18 Insertion time: 09:45 Results Labs CBC & Chem 7: 11/08/18 05:05 11/08/18 05:05 Labs: Microbiology 11/06/18 09:45 Catheterized Urine Urine Culture - Final Klebsiella pneumoniae Assessment and Plan (1) Bilateral pneumonia: Code(s): J18.9 - Pneumonia, unspecified organism Status: Acute (2) Acute UTI: Code(s): N39.0 - Urinary tract infection, site not specified Status: Acute (3) Acute kidney injury: Code(s): N17.9 - Acute kidney failure, unspecified Status: Acute (4) Acute dehydration: Code(s): E86.0 - Dehydration Status: Acute Plan This is a 58-year-old female patient with: Bilateral community-acquired pneumonia -CXR showing bilateral lower infiltrates. -CBC and BMP reviewed, essentially unremarkable. -Started on Ceftriaxone and Azithromycin in ED. Will continue. -Does also admit to some diarrhea; now resolved -Influenza was negative. -Supplemental O2 as needed to keep O2 sats >92%. Comfortable on RA at this time. Acute kidney injury suspect secondary to dehydration/azotemia -resolved UTI, Klebsiella; pansensitive -Creatinine 2.2/GFR 23. Now WNL. Presence of leukocyte esterase and WBC. Denies any dysuria. -Denies any history of kidney disease. Does admit to poor PO intake over the last week, likely dehydration and azotemia and infection. -Stop IVF 11/08. -Continue Ceftriaxone. Hyponatremia -resolved -NA 125. Improved, 135 today. Likely secondary to dehydration. Will continue IVF. Hypokalemia -Replaced as indicated; monitor Thrombocytopenia -Platelet count 91, 86 today. Denies any history of thrombocytopenia. -No signs of bleeding. -Also admitted with hyponatremia and elevated AST; suspect EtOH abuse although patient denies that Elevated random glucose: Random glucose 275. Hemoglobin a1c 5.7. Tobacco use/Nicotine dependance -Encouraged cessation. DVT Prophylaxis: SCDs. Ambulation. Discharge planning: Possibly home tomorrow Progress Note: Quality VTE Deep Vein Thrombosis/Pulmonary Embolism Present on Admission: No _ (1) Bilateral pneumonia Qualifiers: Aspiration pneumonia type: Lung location: unspecified part of lung Pneumonia type: due to unspecified organism Qualified Code(s): J18.9 - Pneumonia, unspecified organism
[2018-11-08 20:29] VITALS: RESP 20
[2018-11-09 08:08] LABS: Potassium 3.2 meq/L (3.5-5.1)
[2018-11-09 08:11] LABS: Calcium 7.8 mg/dL (8.5-10.1)
[2018-11-09 08:12] LABS: Carbon Dioxide 28.7 meq/L (21.0-32.0)
[2018-11-09] MEDS: guaiFENesin/Dextromethorphan 200 MG/20 MG 10 ML UDC PO PRN (09:02)
[2018-11-09] MEDS: Azithromycin 250 MG Tablet PO SCH (09:02)
[2018-11-09] MEDS: Senna/Docusate Sodium 8.6/50 MG Tablet PO SCH (09:03)
[2018-11-09] MEDS: Potassium Chlor 10 mEq Premix 10 MEQ/100 ML PIGGYBACK IV.SIG SCH ×2 (09:49→13:16)
[2018-11-09 12:03] VITALS: O2SAT 95
--- NOTE | 2018-11-09 12:44 | P.PNIM ---
Subjective Interval history: Patient is seen lying in bed. She tells me that she is doing well and very much would like to go home today. No shortness of breath. No coughing or sputum production. no fever or chills. Tolerating meals although she does not really like the food here. Physical Exam Vital signs: Last Vital Signs Temp 98.4 F 11/09/18 12:00 Pulse 100 H 11/09/18 12:00 Resp 20 11/09/18 12:00 BP 144/90 H 11/09/18 12:00 Pulse Ox 95 11/09/18 12:00 Intake & Output 11/07/18 11/08/18 11/09/18 11/10/18 06:59 06:59 06:59 06:59 Intake Total 2670 / 2670 1100 / 1100 850 / 850 Output Total 2200 / 2200 700 / 700 Balance 2670 / 2670 -1100 / -1100 150 / 150 Weight 47.4 kg 49.5 kg 50.5 kg Narrative: GENERAL: Well-developed, well-nourished patient in [facility]. SKIN: Warm and dry. No rash. HEAD: Normocephalic. Atraumatic. CARDIOVASCULAR: Regular rate and rhythm. RESPIRATORY: No accessory muscle use. Clear to auscultation. Breath sounds equal bilaterally. GASTROINTESTINAL: Abdomen soft, non-tender, nondistended. Normoactive bowel sounds x4. MUSCULOSKELETAL: No obvious deformities. Extremities without clubbing, cyanosis , or edema. NEUROLOGICAL: Awake and alert. No obvious cranial nerve deficits. Motor grossly within normal limits. Normal speech. PSYCHIATRIC: Appropriate mood and affect; insight and judgment normal. Urinary Catheter Management Straight: Cath placed during this visit: yes Urethral indwelling: No Insertion date: 11/06/18 Insertion time: 09:45 Results Labs CBC & Chem 7: 11/08/18 05:05 11/09/18 07:33 Labs: Microbiology 11/06/18 09:45 Catheterized Urine Urine Culture - Final Klebsiella pneumoniae Assessment and Plan (1) Bilateral pneumonia: Code(s): J18.9 - Pneumonia, unspecified organism Status: Acute (2) Acute UTI: Code(s): N39.0 - Urinary tract infection, site not specified Status: Acute (3) Acute kidney injury: Code(s): N17.9 - Acute kidney failure, unspecified Status: Acute (4) Acute dehydration: Code(s): E86.0 - Dehydration Status: Acute Plan This is a 58-year-old female patient with: Bilateral community-acquired pneumonia -improving -CXR showing bilateral lower infiltrates. -CBC and BMP reviewed, essentially unremarkable. -Started on Ceftriaxone and Azithromycin in ED. we will discharge today with equivalent p.o. abx. -Does also admit to some diarrhea; now resolved -Influenza was negative. -Supplemental O2 as needed to keep O2 sats >92%. Comfortable on RA at this time. Acute kidney injury suspect secondary to dehydration/azotemia -resolved UTI, Klebsiella; pansensitive -Creatinine 2.2/GFR 23. Now WNL. Presence of leukocyte esterase and WBC. Denies any dysuria. -Denies any history of kidney disease. Does admit to poor PO intake over the last week, likely dehydration and azotemia and infection. -Stop IVF 11/08. Hyponatremia -resolved -NA 125. Improved, 135 today. Likely secondary to dehydration. Will continue IVF. Hypokalemia -improved -Replaced as indicated; monitor Thrombocytopenia -chronic; stable -Platelet count 91, 86 today. Denies any history of thrombocytopenia. -No signs of bleeding. -Also admitted with hyponatremia and elevated AST; suspect EtOH abuse although patient denies Elevated random glucose: Random glucose 275. Hemoglobin a1c 5.7. Tobacco use/Nicotine dependance -Encouraged cessation. DVT Prophylaxis: SCDs. Ambulation. Discharge planning: Home today Progress Note: Quality VTE Deep Vein Thrombosis/Pulmonary Embolism Present on Admission: No _ (1) Bilateral pneumonia Qualifiers: Aspiration pneumonia type: Lung location: unspecified part of lung Pneumonia type: due to unspecified organism Qualified Code(s): J18.9 - Pneumonia, unspecified organism
--- NOTE | 2018-11-09 12:47 | P.DS ---
DS: Providers Date of admission: 11/06/18 11:45 Primary care physician: No Primary Care Physician Brief History from admission: This is a 58-year-old female patient with no known medical history who presented to the ED with complaints of generalized weakness, poor appetite, nausea, vomiting and cough x 1 week. Patient states she has been unable to eat for the past week due to feeling weak and nauseous, states the has also had shortness of breath especially with exertion and activity with complaints of a nonproductive cough. She states that last evening she was with subjective fevers and chills, although she did not take her temperature. Denies any chest pain, headache, or dysuria. Denies any recent antibiotic use or daily medications use. Patient states she has been in relatively good health and has not seen a doctor nor had lab work done her entire life. She does smoke 1.5 ppd cigarettes. Patient presented with CXR showing bilateral infiltrates, Na 125, Creatinine 2.2/GFR 23 and platelets 91. DS: Diagnosis Discharge Diagnosis (1) Bilateral pneumonia: Status: Acute (2) Acute UTI: Status: Acute (3) Acute kidney injury: Status: Acute (4) Acute dehydration: Status: Acute DS: Summary This is a 58-year-old female patient with: Bilateral community-acquired pneumonia -improving -CXR showing bilateral lower infiltrates. -CBC and BMP reviewed, essentially unremarkable. -Started on Ceftriaxone and Azithromycin in ED. discharged with equivalent p.o. abx. -Does also admit to some diarrhea; now resolved -Influenza was negative. -Supplemental O2 as needed to keep O2 sats >92%. Not needed. Acute kidney injury suspect secondary to dehydration/azotemia - treated UTI, Klebsiella; pansensitive -Creatinine 2.2/GFR 23. Now WNL. Presence of leukocyte esterase and WBC. Denies any dysuria. -Denies any history of kidney disease. Does admit to poor PO intake over the last week, likely dehydration and azotemia and infection. -Stop IVF 11/08. Hyponatremia -resolved -NA 125. Improved, 135 today. Likely secondary to dehydration. Will continue IVF. Hypokalemia -improved -Replaced as indicated; monitor Thrombocytopenia -chronic; stable -Platelet count 91, 86 today. Denies any history of thrombocytopenia. -No signs of bleeding. -Also admitted with hyponatremia and elevated AST; suspect EtOH abuse although patient denies Elevated random glucose: Random glucose 275. Hemoglobin a1c 5.7. No indication for intervention. Tobacco use/Nicotine dependance -Encouraged cessation. Time Spent with Patient Total time spent providing and/or coordinating discharge services: < 30 min Quality: VTE Deep Vein Thrombosis/Pulmonary Embolism Present on Admission: No Exam Narrative Exam Narrative: GENERAL: Well-developed, well-nourished patient in [facility]. SKIN: Warm and dry. No rash. HEAD: Normocephalic. Atraumatic. CARDIOVASCULAR: Regular rate and rhythm. RESPIRATORY: No accessory muscle use. Clear to auscultation. Breath sounds equal bilaterally. GASTROINTESTINAL: Abdomen soft, non-tender, nondistended. Normoactive bowel sounds x4. MUSCULOSKELETAL: No obvious deformities. Extremities without clubbing, cyanosis , or edema. NEUROLOGICAL: Awake and alert. No obvious cranial nerve deficits. Motor grossly within normal limits. Normal speech. PSYCHIATRIC: Appropriate mood and affect; insight and judgment normal. Results Labs on day of discharge: Labs from last 24 hours 11/09/18 07:33 Sodium 140 Potassium 3.2 L Chloride 104 Carbon Dioxide 28.7 Anion Gap 7 BUN 6 L Creatinine 0.69 Estimated GFR 87 L Random Glucose 83 Calcium 7.8 L Magnesium 2.0 Impressions ITS Impressions Chest X-Ray 11/06/18 09:08 CONCLUSION: There is some scattered interstitial infiltrates bilaterally. This could be on a chronic basis versus an inflammatory process such as interstitial pneumonia. Discharge Plan Discharge Disposition Patient Disposition: 01 Discharge Home Discharge Condition Condition: Stable Discharge Order Discharge Orders: Discharge Order (Routine); Ordered 11/09/18 Ordered By: Polina Segura Discharge Details Anticipated Discharge Date: 11/09/18 Physicians Team Primary Care Provider: Primary Agueda Lemus Attending Provider: Yamil Sarmiento Rxs /Orders / Referrals /Forms Prescriptions: New azithromycin 250 mg Tablet 500 mg PO DAILY Qty: 4 RF: 0 cefuroxime axetil 500 mg tablet 500 mg PO BID 10 Days Qty: 20 RF: 0 No Action No Known Home Medications RF: 0 Referrals: Primary Care Agueda Stringer [Primary Care Provider] - See Instructions Discharge Interventions Interventions: Discharge Planning - Case Management Last Done: 11/08/18 14:17 Status ED Status: Left Department
[2018-11-09] MEDS ORDERED: Potassium Chlor 10 mEq Premix 10 MEQ/100 ML PIGGYBACK IV.SIG SCH (14:00)
[2018-11-09 15:33] VITALS: BP 156/99; PULSE 96; TEMP 97.4
== END 2018-11-09 15:12 | disposition home or self-care (01) | DRG 194 ==
LOC: PHED 08:37 → PHEDA 11:45 → PHICU 12:52 → PH3 11-07 22:09
PROVIDERS: ADMIT Internal Medicine; ATTEND Internal Medicine
DX: R00.0 Tachycardia, unspecified; E86.0 Dehydration; E87.1 Hypo-osmolality and hyponatremia; N39.0 Urinary tract infection, site not specified; J18.9 Pneumonia, unspecified organism; N17.9 Acute kidney failure, unspecified; D69.6 Thrombocytopenia, unspecified; F17.210 Nicotine dependence, cigarettes, uncomplicated; E87.6 Hypokalemia; Z88.6 Allergy status to analgesic agent
CPT/HCPCS: 71010; 71045; 80048; 80053; 80061; 81001; 82040; 82550; 82552; 83036; 83520; 83735; 83880; 84443; 84484; 85025; 87077; 87086; 87186; 87275; 87276; 87804; 90761; 90765; 90775; 93005; 96361; 96365; 96375; 97110; 97116; 97162; 99285; J0456; J0696; J2405; J3480; J7030; J7050; P9612